=== PATIENT | female | born 2000 | race Caucasian/White ===

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

== ENCOUNTER 2019-07-23 14:49 | Emergency (ER) | payer OTHER ==
--- NOTE | 2019-07-23 14:51 | UC ---
Lower Extremity/Ankle HPI - HPI Summary HPI Summary: 19 yo female presents with ankle injury. She tells me that 2 days ago she was running and tripped in a hole and fell into a small ditch - inverted her left ankle in the process. Had immediate pain. Since that time has had pain, swelling , and bruising to the ankle. Constant ache to the area that is worse with ambulation. Denies numbness or tingling. - History of Current Complaint Stated Complaint: ANKLE INJURY Time Seen by Provider: 07/23/19 14:49 Hx Obtained From: Patient Severity Initially: Moderate Severity Currently: Moderate Pain Intensity: 6 Pain Scale Used: 0-10 Numeric Aggravating Factor(s): Standing, Ambulation Alleviating Factor(s): Rest, Elevation Able to Bear Weight: Yes - Allergies/Home Medications Allergies/Adverse Reactions: Allergies Allergy/AdvReac Type Severity Reaction Status Date / Time No Known Allergies Allergy Verified 07/23/19 14:57 Home Medications: Home Medications ARIPiprazole TAB* [Abilify 2 MG TAB*] 2 mg PO DAILY 07/23/19 [History Confirmed 07/23/19] lamoTRIgine [Lamictal] 250 mg PO DAILY 07/23/19 [History Confirmed 07/23/19] PMH/Surg Hx/FS Hx/Imm Hx Psychological History: Depression - Surgical History Surgical History: None - Family History Known Family History: Positive: Non-Contributory - Social History Occupation: Student Lives: Dormitory/Roommates Alcohol Use: None Substance Use Type: None Smoking Status (MU): Never Smoked Tobacco Review of Systems All Other Systems Reviewed And Are Negative: No Constitutional: Positive: Negative Respiratory: Positive: Negative Cardiovascular: Positive: Negative Neurovascular: Positive: Negative Musculoskeletal: Positive: Other: - Ankle injury Neurological: Positive: Negative Psychological: Positive: Negative Physical Exam - Summary Physical Exam Summary: GENERAL: NAD. WDWN. No pain distress. SKIN: No rashes, sores, lesions, or open wounds. CHEST: No accessory muscle use. Breathing comfortably and in no distress. CV: Pulses intact PT and DP. Cap refill <2seconds MSK: LEFT ANKLE: Mild TTP and edema about dorsal navicular. FROM, but pain with dorsiflexion and plantar flexion. Mild ecchymosis about the inferior aspect of the lateral malleolus. Mild 5th MTP tenderness. NEURO: Alert. Sensations intact and symmetric B/L LEs PSYCH: Age appropriate behavior. Triage Information Reviewed: Yes Vital Signs: Vital Signs: Temp Pulse Resp BP Pulse Ox 98.4 F 58 18 105/54 100 07/23/19 14:54 07/23/19 14:54 07/23/19 14:54 07/23/19 14:54 07/23/19 14:54 Vital Signs Reviewed: Yes Diagnostics - Radiology Ankle XR Radiology Interpretation Completed By: Radiologist Summary of Radiographic Findings: IMPRESSION: No fracture of the left ankle is noted. Foot XR Radiology Interpretation Completed By: Radiologist Summary of Radiographic Findings: IMPRESSION: A 6 MM OSSIFIC STRUCTURE MINIMALLY DISPLACEMENT FROM DORSAL ASPECT OF THE DISTAL TALUS (SEE LATERAL VIEW ) MAY BE HANDLE TURNER OF OLD TRAUMA. CORRELATE WITH POINT TENDERNESS. Lower Extremity Course/Dx - Course Course Of Treatment: XRs read as negative, however, there appears to be a dorsal avulsion fracture arising from the talar dome and this area correlates with her area of discomfort. Foot XR with +fracture. Will treat as a fracture. Pt was placed in a CAM boot and advised to RICE and f/u with Orthopedics within 1 week for a recheck. - Differential Dx/Diagnosis Provider Diagnosis: Avulsion fracture of talus Discharge ED - Sign-Out/Discharge Documenting (check all that apply): Patient Departure All imaging exams completed and their final reports reviewed: Yes - Discharge Plan Condition: Stable Disposition: HOME Prescriptions: traMADol TAB* [Ultram*] 50 mg PO Q12H PRN #6 tab MDD 2 PRN Reason: Pain - Moderate Patient Education Materials: Ankle Fracture (ED) Referrals: MERVAT Jesus [[email or web address], APPLICATION, OTHER] - Varghese Kaur MD [Medical Doctor] - 1 Week Additional Instructions: If you develop a fever, shortness of breath, chest pain, new or worsening symptoms - please call your PCP or go to the ED immediately. 1) Rest, Ice, and elevate your ankle intermittently throughout the day to reduce pain and swelling 2) Use the CAM boot as much as possible 3) Please call Orthopedics at the number below to schedule an appointment for a recheck within 1 week - Billing Disposition and Condition Condition: STABLE Disposition: Home - Attestation Statements Provider Attestation: Per institutional requirements, I have reviewed the chart, however, I was not consulted specifically or made aware of this patient by the midlevel provider. I did not personally evaluate, interact with , or disposition this patient.
[2019-07-23 14:59] VITALS: BP 105/54
== END 2019-07-23 15:45 | disposition home or self-care (01) ==
LOC: UCEAST 14:49
DX: S92.192A Other fracture of left talus, initial encounter for closed fracture (principal); W17.2XXA Fall into hole, initial encounter; Y93.02 Activity, running; Y92.9 Unspecified place or not applicable
CPT/HCPCS: 99213; G0463